=== PATIENT | male | born 1955 | race Caucasian/White ===

== ENCOUNTER 2017-05-03 09:22 | Emergency (ER) | payer BC ==
[2017-05-03 09:36] VITALS: BMI 29.2
--- NOTE | 2017-05-03 09:54 | C.PDOC ---
History Of Present Illness 61 year old male presents to the ED for evaluation of exacerbated localized left -sided lower back pain for two days that is worse with movement. Patient notes a history of lower back pain with similar symptoms in the past. He denies fever , chills, abdominal pain, incontinence, saddle anesthesia, denies new weakness, sensory or vascular deficits to bilateral lower extremities. Ambulatory in Ed with stable gait. Time Seen by Provider: 05/03/17 09:33 Chief Complaint (Nursing): Back Pain History Per: Patient History/Exam Limitations: no limitations Onset/Duration Of Symptoms: Days (2 days ) Quality Of Discomfort: "Pain" Previous Symptoms: Back Pain (history of lower back pain) Associated Symptoms: None Exacerbating Factor(s): Movement Recent travel outside of the [place]: No Past Medical History Reviewed: Historical Data, Nursing Documentation, Vital Signs Vital Signs: Last Vital Signs Temp 97.6 F 05/03/17 09:31 Pulse 86 05/03/17 09:31 Resp 20 05/03/17 09:31 BP 156/81 H 05/03/17 09:31 Pulse Ox 98 05/03/17 10:53 Family History: States: Unknown Family Hx - Social History Hx Tobacco Use: Yes (5-6 cigarettes daily) Hx Alcohol Use: Yes (2 beers on saturdays) Hx Substance Use: No - Immunization History Hx Tetanus Toxoid Vaccination: No Hx Influenza Vaccination: No Hx Pneumococcal Vaccination: No Review Of Systems Constitutional: Negative for: Fever, Chills Cardiovascular: Negative for: Chest Pain Respiratory: Negative for: Shortness of Breath Gastrointestinal: Negative for: Abdominal Pain Genitourinary: Negative for: Incontinence Musculoskeletal: Positive for: Back Pain (lower back pain ) Neurological: Negative for: Weakness, Numbness Physical Exam - Physical Exam Appears: Non-toxic, No Acute Distress Skin: Warm, Dry Head: Atraumatic Eye(s): bilateral: Normal Inspection, PERRL, EOMI Oral Mucosa: Moist Neck: Supple Chest: Symmetrical, No Deformity Cardiovascular: Rhythm Regular Respiratory: Normal Breath Sounds, No Rales, No Rhonchi, No Wheezing Back: Paraspinal Tenderness (diffuse paralumbar tenderness ) Extremity: Normal ROM, No Tenderness Neurological/Psych: Oriented x3, Normal Speech, Normal Cognition, Normal Cranial Nerves, Normal Motor, Normal Sensation ED Course And Treatment O2 Sat by Pulse Oximetry: 98 (room air) Progress Note: On re-evaluation, pt is afebrile, hemodynamicaly stable. Non- toxic. Ambulatory in ED with stable gait. ENT: isabell cute findings. Abd: benign. back: (-) CVA tenderenss. neurologicaly intact. UA results review and appears noraml. Pt ahs clinical findings c/w lower back pain r/o lumbar radiculopathy. Pt advised and ref. to f/u with PMD in 2-3 days for re-eavl. return to Ed if any worsening or new changes. Disposition Counseled Patient/Family Regarding: Diagnosis, Need For Followup, Rx Given - Disposition Referrals: [facility] [Outside] Disposition: HOME/ ROUTINE Disposition Time: 10:35 Condition: STABLE Additional Instructions: LIght duty to lower back, avoid heavy lifting, bending, etc for 1 week Take pain medication as prescribed Follow up with PMD and PM in 2-3 days for re-evaluation. Return to ED if any worsening or new changes. Prescriptions: Ibuprofen [Motrin Tab] 600 mg PO Q6 #20 tab Methocarbamol [Robaxin] 500 mg PO TID #14 tab traMADol [Ultram] 50 mg PO TID #7 tab Instructions: Lumbar Radiculopathy (ED) Forms: Work Excuse Print Language: CROATIAN - Clinical Impression Clinical Impression: Lumbar radiculopathy - Scribe Statement The provider has reviewed the documentation as recorded by the Scribe Karina Neil All medical record entries made by the Scribe were at my direction and personally dictated by me. I have reviewed the chart and agree that the record accurately reflects my personal performance of the history, physical exam, medical decision making, and the department course for this patient. I have also personally directed, reviewed, and agree with the discharge instructions and disposition.
[2017-05-03 10:19] LABS: RBC URINE < 1 /hpf (0-3); URINE BILIRUBIN NEGATIVE (NEGATIVE); URINE BLOOD NEGATIVE (NEGATIVE); URINE COLOR Yellow (YELLOW); URINE GLUCOSE (UA) NORMAL (Normal); URINE KETONE NEGATIVE (NEGATIVE); URINE LEUKOCYTE ESTERASE NEG Leu/uL (Negative); URINE PROTEIN NEGATIVE (NEGATIVE); URINE UROBILINOGEN NORMAL mg/dL (0.2-1.0); WBC URINE < 1 /hpf (0-5)
[2017-05-03 11:18] VITALS: BP 125/82; PULSE 84; RESP 16; TEMP 98.5; O2SAT 99
== END 2017-05-03 11:18 | disposition home or self-care (01) ==
LOC: C.ER 09:22
DX: M54.16 Radiculopathy, lumbar region (principal)
CPT/HCPCS: 81001; 96372; 99285; J1885

== ENCOUNTER 2019-01-31 08:26 | Emergency (ER) | payer BC ==
[2019-01-31 08:26] VITALS: BMI 29.2
[2019-01-31 08:31] VITALS: RESP 18
--- NOTE | 2019-01-31 09:42 | C.PDOC ---
History Of Present Illness 63 y/o male presents to the ED complaining of left-sided lumbar pain that began 2 days ago after lifting a heavy object. He denies any fall or blunt trauma. Patient tried taking ibuprofen last night with minimal improvement. Otherwise he denies any dysuria, hematuria, extremity weakness, numbness, or radiation of pain. Time Seen by Provider: 01/31/19 08:47 Chief Complaint (Nursing): Back Pain History Per: Patient History/Exam Limitations: no limitations Onset/Duration Of Symptoms: Days (x 2) Current Symptoms Are (Timing): Still Present Past Medical History Reviewed: Historical Data, Nursing Documentation, Vital Signs Vital Signs: Last Vital Signs Temp 97.9 F 01/31/19 08:29 Pulse 98 H 01/31/19 08:29 Resp 18 01/31/19 08:29 BP 140/85 01/31/19 08:29 Pulse Ox 96 01/31/19 08:29 - Medical History PMH: No Chronic Diseases Family History: States: Unknown Family Hx - Social History Hx Tobacco Use: Yes (5-6 cigarettes daily) Hx Alcohol Use: Yes Hx Substance Use: No - Immunization History Hx Tetanus Toxoid Vaccination: No Hx Influenza Vaccination: No Hx Pneumococcal Vaccination: No Review Of Systems Constitutional: Negative for: Fever, Chills Gastrointestinal: Negative for: Vomiting, Abdominal Pain Genitourinary: Negative for: Dysuria, Hematuria Musculoskeletal: Positive for: Back Pain Skin: Negative for: Rash Neurological: Negative for: Weakness, Numbness, Incoordination Physical Exam - Physical Exam Appears: Non-toxic, No Acute Distress, Other (Appears to be in mild pain) Skin: Warm, Dry Head: Atraumatic, Normacephalic Eye(s): bilateral: Normal Inspection, PERRL, EOMI Oral Mucosa: Moist Neck: Normal ROM Chest: Symmetrical Cardiovascular: Rhythm Regular, No Murmur Respiratory: Normal Breath Sounds, No Accessory Muscle Use Gastrointestinal/Abdominal: Soft, No Tenderness, No Distention Back: No Vertebral Tenderness, Paraspinal Tenderness (Left paralumbar tenderness), Other (Arrives wearing back brace; Upon removal, there are no rashes or skin changes) Extremity: Bilateral: Atraumatic, Normal ROM Neurological/Psych: Oriented x3, Normal Speech ED Course And Treatment O2 Sat by Pulse Oximetry: 96 (RA) Pulse Ox Interpretation: Normal - Other Rad LS spine XR X-Ray: Interpreted by Me, Viewed By Me Interpretation: No acute fractures or listhesis Progress Note: Patient given ibuprofen 600 mg and flexeril 10 mg. X-ray taken of LS spine, shows no fractures or listhesis. On re-evaluation, patient is resting comfortably and reports he feels better. Plan is to discharge patient home on motrin and muscle relaxant. Patient verbalizes understanding and will follow up with the clinic. Reassessment Condition: Improved Disposition Counseled Patient/Family Regarding: Studies Performed, Diagnosis, Need For Followup, Rx Given - Disposition Referrals: [facility] [Outside] Disposition: HOME/ ROUTINE Disposition Time: 09:45 Condition: STABLE Prescriptions: Cyclobenzaprine [Flexeril] 10 mg PO BID PRN #20 tab PRN Reason: Muscle Spasm Ibuprofen [Motrin Tab] 600 mg PO Q6 PRN #30 tab PRN Reason: fever/pain Instructions: Low Back Pain (DC) Forms: [facility] [employer] [facility] (Slovenian), Work Excuse Print Language: GEORGIAN - POA Present On Arrival: None - Clinical Impression Clinical Impression: Lumbar sprain - Scribe Statement The provider has reviewed the documentation as recorded by the Allen Hoover Provider Attestation: All medical record entries made by the Kristiibnora were at my direction and personally dictated by me. I have reviewed the chart and agree that the record accurately reflects my personal performance of the history, physical exam, medical decision making, and the department course for this patient. I have also personally directed, reviewed, and agree with the discharge instructions and disposition.
[2019-01-31 09:52] VITALS: BP 132/80; PULSE 80; TEMP 98.1
[2019-01-31 10:13] VITALS: O2SAT 96
--- NOTE | 2019-01-31 11:55 | RAD ---
Date of service: 01/31/2019 PROCEDURE: Radiographs of the Lumbar Spine. HISTORY: LOW BACK PAIN AFTER LIFTING COMPARISON: Lumbar spine radiographs performed 05/06/17 FINDINGS: BONES: Alignment appears satisfactory. Degenerative changes of the lumbar spine including prominent anterior osteophyte formation. No listhesis. No acute displaced fracture identified. DISC SPACES: Intervertebral disc space narrowing most prominent at L5-S1. OTHER FINDINGS: Dense vascular calcifications of the aorta. IMPRESSION: Degenerative changes. No acute displaced fracture or subluxation identified.
== END 2019-01-31 09:53 | disposition home or self-care (01) ==
LOC: C.ER 08:26
DX: S33.5XXA Sprain of ligaments of lumbar spine, initial encounter (principal); X50.0XXA Overexertion from strenuous movement or load, initial encounter